=== PATIENT | male | born 1975 | race Caucasian/White ===

== ENCOUNTER 2024-07-14 13:01 | Outpatient (AMB) | payer OTHER, SELFPAY ==
--- NOTE | 2024-07-14 13:01 | A.OFFVIS_ITS ---
Intake Visit Reasons: vasectomy consult Intake Note: New Patient presents for initial visit for vasectomy consult Urology Medications: tadalafil Blood Thinner: none Children# 2 ; Expected Children#0 Night Shift Required: No Accompanied by: Self / Same As Patient Allergies No Known Allergies Allergy (Unverified 07/14/24 13:53) Medication List - Last Reconciled 07/14/24 by MAAME Moya atorvastatin 20 mg PO DAILY tadalafil mg PO vitamin B complex 1 cap PO DAILY HPI Comments Details: Wilian is a very pleasant 48-year-old male patient of . He has a past medical history of subclinical hypothyroidism, hyperlipidemia, and hydrocele. He presents to the office today for - vasectomy evaluation Vasectomy evaluation The patient presents for vasectomy consultation.? He is currently He has fathered -2 children, with a single partner The youngest child is - 8 years old His partner is aware and permissive for a vasectomy Current form of control is hormones Current employment is tray service worker with [employer] The vasectomy may be complicated due to a history of patient with a previous history of left-sided hydrocele never requiring surgical intervention; self resolved. Patient education has been provided via AUA video, via printed information, risks of failure, recovery time, bruising and potential pain syndrome have been stressed Discussion today focused on the presence of vasectomy and the risks, benefits and alternatives that are available. Vasectomy as intended as a permanent form of control. Printed information and literature was provided to the sharri ent. Overall there is a one in 2500 failure rate. This can occur at any time after vasectomy. Risks were discussed highlighting hematoma, spermatocele, epididymal congestion, development of sperm antibodies, and development of chronic pain estimated between 1-5%. The procedure was reviewed in detail. Anatomical diagrams of the male genitalia were used to explain the location of the vas deferens. The vas deferens will be transected, the proximal end will be cauterized, a metal clip would be applied to separate the 2 vas deferens ends. It was explained the procedure will be done in the office and takes approximately 10-15 minutes. Less common problems that arise with vasectomy include hematoma, bleeding, allergic reaction to anesthetic, epididymal infection, epididymal congestion, scrotal discomfort, spermatic leak, spermatic granuloma and the possibility of antisperm antibodies. He understands these risks and wishes to proceed. Consent was signed at the office today. He also understands that it takes 12 weeks for sperm to fully clear the system. He will need to provide a semen sample at 12 weeks and if this is not clear a 2nd sample at 16 weeks. Medical clearance to stop using pr otection will only be provided if he satisfies published criteria for sperm clearance. [facility] Medical History Subclinical hypothyroidism Hyperlipidemia Testicular mass Hyperglycemia Surgical History History of tonsillectomy Review of Systems Const All systems reviewed & are unremarkable except as noted in HPI and below Physical Exam Const General: cooperative, healthy appearing, comfortable, no acute distress, well developed, alert and awake Orientation/consciousness: patient oriented x3 Limitations: no limitations HEENT Head: Yes normal to inspection, Yes normocephalic and Yes atraumatic Ears: hearing grossly normal bilaterally Eyes General: appearance normal, both eyes and all related structures Neck Neck: Yes normal visual inspection and Yes trachea midline Chest Chest palpation & inspection: normal inspection of the chest Resp Effort & Inspection: normal respiratory effort and able to speak in complete sentences Cardio Rate: regular rate GI Inspection: Yes normal to inspection General: Yes no CVA tenderness Male General Exam: Yes normal external exam Penis: normal penis and circumcised Meatus: meatus normal Scrotum: scrotum normal Testes: Testes normal Back/Spine/Pelvis Back: no CVA tenderness Skin General skin exam: no rashes or lesions noted Neuro General: patient oriented x3 Extrem General: Yes normal to inspection Psych Appearance: grossly normal and well kempt Mental Status: mental status grossly normal Speech and movement: Normal speech and movement present and Clear speech present Affect: normal affect Attitude: cooperative Thought process: Normal thought process present Thought content: Normal thought content present Insight: Fair insight present (Psych) Judgement: Fair judgement present (Psych) Assessment & Plan Assessment & Plan (1) Anxiety about health: Code(s): R45.89 - Other symptoms and signs involving emotional state Category: Medical (2) Vasectomy evaluation: Code(s): Z30.09 - Encounter for other general counseling and advice on contraception Category: Medical Plan Vasectomy procedure was discussed at length; risks and benefits. Consent obtain All questions were answered We discussed in office semen analysis verses fellows kit; information provided Prescriptions provided; discussed importance of bringing medications to office day of surgical procedure. Will schedule for in office vasectomy Follow-up per doctor's orders; or sooner with any issues, concerns, and or questions. Medications: New tramadol Bring medication to office day of procedure 50 mg PO Q8H PRN 7 tabs 0RF pain diazepam (Valium) Bring medications office day of procedure 2 mg PO DAILY 2 tabs 0RF anxiety R 45.89 - Other symptoms and signs involving emotional state Patient Instructions: The patient had an opportunity to ask questions regarding the treatment plan. All questions were answered. Physical exam, labs, and imaging were discussed and reviewed in detail. As well as risks, benefits, and discussion of treatment choices. No major barriers to understanding were identified. The patient expressed understanding and agreement with the above treatment plan. The patient was made aware they should contact our office by phone for worsening of their current condition, the appearance of new symptoms, or with any questions or concerns. Compliance is encouraged with any medications and follow up testing that is ordered. It is a privilege to be allowed the opportunity to participate in? your urological care.? Again, if you have any questions or concerns If you have any questions or concerns please do not hesitate to contact me. The office is [phone]. This note is constructed using voice recognition software. While every effort has been made to ensure accuracy food preparer errors may have been included. Yours sincerely, MAAME Moya Coding Level of Care Code New Pt Level 4 (65602) Diagnoses Anxiety about health R45.89 Vasectomy evaluation Z30.09
--- OUTSIDE RECORDS SUMMARY | 2024-07-14 14:17 | XMS_ITS | Clinical Summary ---
Author Organization [facility] [address] [place] [address] [place] [phone] Phone Care Team Providers Care Paint Supervisor Name Role Phone Cecil Harman MD Primary Care Provider [phone] Allergies No known active allergies Medications albuterol HFA (PROAIR HFA ; PROVENTIL HFA ; VENTOLIN HFA) 90 mcg/actuation inhaler Inhale 2 Puffs into the lungs every 4 hours as needed for Cough or Wheezing. 4 Active MULTIVITAMIN ORAL Take by mouth. Activ e atorvastatin (LIPITOR) 20 mg tablet Take 1 Tablet by mouth daily. 4 Active cyanocobalamin (VITAMIN B-12) 1,000 mcg tablet Take 1 Tablet by mouth daily. 4 Active L. acidophilus/Bif id. animalis (DAILY PROBIOTIC ORAL) Take by mouth. Active naproxen (NAPROSYN) 500 mg tablet Take 1 Tablet by mouth 2 times daily (with meals). 4 Active omega-3 acid ethyl esters (LOVAZA) 1 gram capsule Take by mouth. Activ e tadalafiL (CIALIS) 10 mg tablet Take 1 Tablet by mouth as needed for Erectile Dysfunction (Take 30 minutes before sexual activity, do not exceed more than 2 dose with in 24 hours). 4 Active Active Problems Problem Noted Date Diagnosed Date Hyperglycemia 09/07/2019 Testicular mass 09/07/2019 Hyperlipidemia 11/05/2018 Subclinical hypothyroidism 01/25/2017 Encounters Date Type Department Care Team Description 05/19/2024 [place] [facility] [place] [address] [place] [address] Cecil Harman MD Referral from Last 3 Months Immunizations Name Administration Dates Next Due Moderna SARS-CoV-2 COVID-19, mRNA, LNP-S, preservative free 02/08/2021,04/11/2020,03/11/2020 Pneumococcal conjugate 20 [facility] (Prevnar 20, PCV 20) 2mo and older 08/22/2023 Td Tetanus diptheria (Tdvax) 7yo and older 09/09 Tdap Tetanus diptheria acell ular pertussis (Boostrix; Adacel) 7yo and older 02/20/2012 Surgical History Surgery Date Site/Laterality Comments TONSILLECTOMY PROCEDURE: HISTORICAL TONSILLECTOMY Medical History Medical History Date Comments Asthma DX:Asthma Herpes genitalis in men DX:Herpe s genitalis in men Family History Medical History Relation Name Comments Coronary artery disease Maternal Grandfather Other: cancer Maternal Grandfather unsure which kind of CA Coronary artery disease Maternal Grandmother Diabetes Maternal Grandmother Crohn's disease Mother gestational DM Relation Name Status Comments Father Alive Maternal Grandfather Maternal Grandmother Mother Alive Social History Tobacco Use Types Packs/Day Years Used Date Smoking Tobacco: Former Cigarettes 1 36.8 1 03/18/1979 - 11/16/2016 Smokeless Tobacco: Former Tobacco Cessation:Counseling Given: Not Answered Alcohol Use Standard Drinks/Week Comments Yes 0 (1 standard drink = 0.6 oz pur e alcohol) Housing Instability Answer Date Recorde d Are you worried that in the next 2 months you may not have stable housing? Patient declined 03/01/2024 Food Access & Nutrition Answer Date Rec orded Do you have access to a vari ety of food including fruits and vegetables? Patient declined 03/01/2024 Health Literacy Answer Date Recorded How often do you need to hav e someone help you when you read instructions, pamphlets, or other written material from your doctor or pharmacy? Patient declined 03/01/2024 Caregiver: How often do you need to have someone help you when you read instructions, pamphlets, or other written material from your doctor or pharmacy? Not on file 024 Financial Risk Answer Date Recorded How hard is it for you to pa y for the very basics like food, housing, medical care, and air conditioning / heating? Patient declined 03/01/2024 Transportation Answer Date Recorded Has the lack of transportati on kept you from meetings, work, or from getting things needed for daily living? Patient declined 03/01/2024 Has the lack of transportati on kept you from medical appointments or from getting medications? Patient declined 03/01/2024 Social Isolation Answer Date Recorded How often do you feel lonely or isolated from those around you? Patient declined 03/01/2024 Food Risk Answer Date Recorded Within the past 12 months we worried whether our food would run out before we got money to buy more. Patient declined 024 Within the past 12 months th e food we bought just didn't last and we didn't have money to get more. Patient declined 02/09 Dependent Care Answer Date Recorded Do you need help finding or paying for care for your loved ones. For example, early childhood worker or elderly care for an older adult? Patient declined 03/01/2024 Education Answer Date Recorded Do you think completing more education or training, like finishing a GED, going to college, or learning a trade, would be helpful for you? Patient declined 03/01/2024 Employment and Income Answer Date Recor ded During the last four weeks, have you been actively looking for work? Patient declined 03/01/2024 Living Situation Answer Date Recorded What is your living situation? 1 05/02/2023 Sex and Gender Information Value Date Recorded Sex Assigned at Not on file Legal Sex Male 11:11 AM EST Gender Identity Not on file Sexual Orientation Not on file Obstetrics History Last Filed Vital Signs Vital Sign Reading Time Taken Comments Blood Pressure 122/84 03/02/2024 1:21 PM EST Pulse 78 03/02/2024 1:21 PM EST Temperature 36.9 ??C (98.4 ??F) 03/02/2024 1:21 PM ES T Respiratory Rate 16 03/02/2024 1:21 PM EST Oxygen Saturation - - Inhaled Oxygen Concentration - - Weight 93.4 kg (206 lb) 03/02/2024 1:21 PM EST Height 185.4 cm (6' 1 ) 03/02/2024 1:21 PM EST Body Mass Index 27.18 03/02/2024 1:21 PM EST Plan of Treatment Health Maintenance Due Date Last Done Comments Hepatitis B Vaccines (1 of 3 - 19+ 3-dose series) 1996 Colorectal Cancer Screening: Colonoscopy 02/06/2022 DTaP,Tdap,and Td Vaccines (3 - Td or Tdap) 02/19/2022 02/20/2012, 09/09/2008 Influenza Vaccine (Season Ended) 2024 Depression Screening 03/01/2025 03/01/2024 Social Influencers of Health Screening 03/01/2025 03/01/2024 Cholesterol Screening (Lipid Panel) 09/08/2028 09/09/2023, 09/09/2023 HIV Screening Completed 10/23/2021 Hepatitis C Screening Completed 10/23/2021 Pneumococcal Vaccine: Pediatrics (0 to 5 Years) and At-Risk Patients (6 to 64 Years) Completed 08/22/2023 COVID-19 Vaccine Completed 01/23/2024, , 02/21/2021, Additional history exists HIB Vaccines Aged Out No longer eligi ble based on patient's age to complete this topic HPV Vaccines Aged Out No longer eligi ble based on patient's age to complete this topic Hepatitis A Vaccines Aged Out No long er eligible based on patient's age to complete this topic IPV Vaccines Aged Out No longer eligi ble based on patient's age to complete this topic MMR Vaccines Aged Out No longer eligi ble based on patient's age to complete this topic Meningococcal ACWY Vaccine Aged Out N o longer eligible based on patient's age to complete this topic Meningococcal B Vaccine Aged Out No l onger eligible based on patient's age to complete this topic RSV Immunization Patients Under 20 months Aged Out No longer eligible based on patient's age to complete this topic Varicella Vaccines Aged Out No longer eligible based on patient's age to complete this topic Procedures Procedure Name Priority Date/Time Associated Diagnosis Comments LIPID PANEL Routine 09/09/2023 HEPATITIS C SCREENING Routine 10/23/2021 HIV SCREENING Routine 10/23/2021 from Last 3 Months or Most Recently Relevant to Health Maintenance Results * (ABNORMAL) Lipid panel (09/09/2023) LDL/HDL Ratio 8(A) 0 - 4 Triglycerides 242(A) 0 - 150 mg/dL Cholesterol 246(A) 0 - 200 mg/dL HDL 32(A) >=40 mg/dL LDL Cholesterol 166(A) 0 - 100 mg/dL Blood Venous blood specimen / Unknown Historical Provider LAB BLOOD ORDERABLES [facility] Result * HIV Screening (10/23/2021) HIV Screening abstracted Historical Provider HEALTH MAINTENANCE Final Result * Hepatitis C Screening (10/23/2021) Hepatitis C Screening abstracted Historical Provider HEALTH MAINTENANCE Final Result from Last 3 Months or Most Recently Relevant to Health Maintenance Insurance [facility] Care Teams Paint Supervisor Relationship Specialty Start Date End Date Cecil Harman MD [address] [place] [address] PCP - General Internal Medicine 10/16/21
== END 2024-07-14 13:56 | disposition home or self-care (01) ==
LOC: HO.HUSH 13:02
PROVIDERS: PCP Internal Medicine; Visit Provider Nurse Practitioner Family
DX: R45.89 Other symptoms and signs involving emotional state (principal); Z30.09 Encounter for other general counseling and advice on contraception
CPT/HCPCS: 99204

== ENCOUNTER → 2024-07-14 13:01 | Outpatient (BNVA) | payer OTHER, SELFPAY | PROVIDERS: PCP Internal Medicine; Visit Provider Nurse Practitioner Family ==

== ENCOUNTER 2024-09-02 14:55 | Outpatient (AMB) | payer OTHER, SELFPAY ==
--- NOTE | 2024-09-02 15:02 | A.OFFVIS_ITS ---
Intake Visit Reasons: Vasectomy Intake Note: Patient is present for VASECTOMY Urology Medication:VITAMIN B,TADALAFIL Antibiotic Allergy:NONE Blood Thinner:NONE Supervisor Packing Room Required: No Allergies No Known Allergies Allergy (Verified 09/02/24 15:05) HPI Comments Details: Wilian is a very pleasant 48-year-old male patient of . He has a past medical history of subclinical hypothyroidism, hyperlipidemia, and hydrocele. He presents to the office today for - vasectomy procedure Vasectomy procedure The patient presents for vasectomy consultation.? 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 Preoperative and postoperative instructions were provided to the patient. The patient has transportation to home identified at the completion of the procedure. Anti-anxiolytic prescription medication had been taken after consent verification and all questions answered. Tylenol with Codeine pain medication was also provided. The penis was elevated using a rubber band that was attached to the patient's shirt. Both vasa were palpated through the skin using a 3 finger technique and the penoscrotal junction was prepped with Betadine. After Betadine application the left vas was elevated using a 3 finger grasping technique. 1% lidocaine was used to create a subdermal bubble. Further anesthetic was then advanced using the 25-gauge needle along the vasa in a proximal fashion. Approximately 2 minutes were allowed to for local anesthetic uptake. Using the sharp spreading instrument the scrotal skin was spread longitudinally in line with the vasa until the subdermal layer had been divided. The vasa was then elevated from the scrotum using a ring clamp. Care was taken to elevate the superior portion of the vasa by rotating the ring clamp in a caudad direction. The battery powered cautery was used to divide the vasal sheath in a longitudinal direction on the exposed vasa and to strip the vasal sheath from the vasa. A 2nd narrower ring clamp was placed on the exposed vas and used to lift the vas from the vasal sheath. so it grasped the elevated vas. The cautery was used to divide vasal attachments and allow full exposure of a small loop of vasa. The sharp spreading instrument was then used to create a tunnel under the vasa and spread to allow the blood vessels of the vasa to retract from the vasa. A mosquito clamp was placed on the proximal portion of the vas. The battery- powered cautery was used to make a partial division in the proximal vas and then inserted in order to cauterize the proximal end of the vas. This was then cut and allowed to retract into the vasal sheath. The mosquito was then used to twist the vasa 180 degrees creating a fascial interposition. Using a 4-0 chromic suture the fascial interposition was sutured closed. The distal portion of the vas was then cut in order to obtain a segment of vasa. The vasa were allowed to retract back into the scrotum. A small snap was then used to approximate the skin edges and allow hemostasis without placement of a suture. A similar procedure was repeated on the right side. He tolerated the procedure well. Triple antibiotic was applied. A gauze was applied. An ice pack was applied to assist with minimizing swelling. Postoperative instructions were confirmed. He understands the need to continue to use control methods. A semen sample should be brought for inspection under the microscope in 10-12 weeks. CPT 15569 Vasectomy performed by: Walter Santana Informed consent given: Yes Informed consent signed: Yes Time out checklist: patient, procedure, site marked/identified, positioning of patient, supplies available, allergies confirmed and team agrees on procedure Specimens: vas segments not sent to pathology [id number] - Vasectomy Office Meds lidocaine (PF) 10 mg/mL (1 %) injection solution Performing Provider: Walter Santana MD Performing [facility] [place] [facility] Document[facility] (not given) by: Walter Santana MD on 09/02/24 15:41 Dose Route Admin Location Dispensed Lot Number Expiration Date ND Instrument Room Technician 2 mL Infiltration mL Total Dispensed Waste n/a n/a Assessment & Plan Assessment & Plan (1) Anxiety about health: Code(s): R45.89 - Other symptoms and signs involving emotional state Category: Medical Plan Twelve week follow-up Orders: Orders AMB Vasectomy Today R45.89 - Other symptoms and signs involving emotional state Medications: New lidocaine (PF) 2 mL Infiltration ONCE 2 mL 0RF R45.89 - Other symptoms and signs involving emotional state Patient Instructions: This note is constructed using voice recognition software. While every effort has been made to ensure accuracy wrapper sizer errors may have been included. Imaging studies, laboratory and physical exam results were discussed and reviewed in detail. No major barriers to patient understanding were identified. An opportunity to ask questions regarding the treatment plan was provided. All questions were answered. The patient expressed understanding and agreement with the above treatment plan. The patient is aware they should contact our office by phone for worsening of their current condition or the appearance of new urologic symptoms. Compliance is encouraged with any medications and followup testing that is ordered. It is a privilege to participate in the urologic care of your patient. If you have any questions or concerns regarding treatment for the above conditions, or other urologic issues, please do not hesitate to contact me. The office telephone contact is [phone]. Sincerely, Dr Walter Santana MD, [facility] - Urology Compassionate Specialist Care for the Genitourinary System Coding Level of Care Code Procedure Only Diagnoses Anxiety about health R45.89 CPT Codes Office Procedure - CPT: 99333 - Vasectomy ([id number])
--- OUTSIDE RECORDS SUMMARY | 2024-09-02 17:49 | XMS_ITS | Clinical Summary ---
Author Organization [facility] [address] [place] [address] [place] [phone] Phone Care Team Providers Care Assembler Piano Name Role Phone Cecil Harman MD Primary Care Provider [phone] Allergies No known active allergies Medications albuterol [...] mass 09/07/2019 Hyperlipidemia 11/05/2018 Subclinical hypothyroidism 01/25/2017 Immunizations Name Administration Dates Next Due Moderna SARS-CoV-2 COVID-19, mRNA, LNP-S, preservative free 02/08/2021,04/11/2020,03/11/2020 Pneumococcal conjugate 20 [facility] (Prevnar 20, PCV 20) 2mo and older [...] care for your loved ones. For example, child development teacher or elderly care for an older adult? [...] 78 03/02/2024 1:21 PM EST Temperature 36.9 C (98.4 F) 03/02/2024 1:21 PM EST Respiratory Rate 16 03/02/2024 1:21 PM EST [...] Most Recently Relevant to Health Maintenance Insurance [facility] Care Teams Assembler Piano Relationship Specialty Start Date End Date Cecil Harman MD [address] [place] [address] PCP - General Internal Medicine 10/16/21
== END 2024-09-02 15:45 | disposition home or self-care (01) ==
LOC: HO.HUSH 14:56
PROVIDERS: PCP Internal Medicine; Visit Provider Urology
DX: Z30.2 Encounter for sterilization (principal); R45.89 Other symptoms and signs involving emotional state
CPT/HCPCS: 55250

== ENCOUNTER → 2024-09-02 14:55 | Outpatient (BNVA) | payer OTHER, SELFPAY | PROVIDERS: PCP Internal Medicine; Visit Provider Urology | DX: Z30.2 Encounter for sterilization (principal); R45.89 Other symptoms and signs involving emotional state | CPT/HCPCS: 55250 ==

== ENCOUNTER 2024-12-04 15:07 | Outpatient (AMB) | payer OTHER, SELFPAY ==
--- NOTE | 2024-12-04 15:08 | A.OFFVIS_ITS ---
Intake Visit Reasons: 12w semen analysis Intake Note: Patient is present for POST- VASECTOMY Urology Medication:VITAMIN B,TADALAFIL Antibiotic Allergy:NONE Blood Thinner:NONE Quarry Plug And Feather Driller Required: No Accompanied by: Self / Same As Patient Allergies No Known Allergies Allergy (Verified 12/04/24 15:09) HPI Comments Details: Wilian is a very pleasant 48-year-old male patient of . He has a past medical history of subclinical hypothyroidism, hyperlipidemia, and hydrocele. He presents to the office today for - vasectomy procedure Follow-up from vasectomy procedure Minimal issues after procedure No sperm seen on high-powered field evaluation in office today Successful outcome P.r.n. follow-up Vasectomy procedure The patient presents for vasectomy consultation.? He is currently He has fathered -2 children, with a single partner The youngest child is - 8 years old His partner is aware and permissive for a vasectomy Current form of control is hormones Current employment is motel food service supervisor with [employer] Medical History Subclinical hypothyroidism Hyperlipidemia Testicular mass Hyperglycemia Surgical History History of tonsillectomy Review of Systems Const Denies chills and Denies fever(s) Card Reports no additional complaints and Denies syncope Resp Denies cough GI Denies abdominal pain and Denies heartburn Reports as per HPI and Denies change in libido Neuro Denies syncope Psych Denies change in libido Endo Denies change in libido Physical Exam Const General: cooperative, healthy appearing, comfortable and no acute distress Orientation/consciousness: patient oriented x3 HEENT Face and sinus: Yes normal facial exam Mouth: moist mucous membranes Neck Neck: Yes normal visual inspection, Yes full ROM and Yes trachea midline Chest Chest palpation & inspection: normal inspection of the chest Resp Effort & Inspection: normal respiratory effort, able to speak in complete sentences and no respiratory distress GI Inspection: Yes normal to inspection Back/Spine/Pelvis Cervical Spine: normal cervical lordosis Thoracic/Lumbar Spine: thoracic and lumbar spine normal to inspection Skin General skin exam: no rashes or lesions noted Neuro General: patient oriented x3, gait normal, tone normal and moves all extremities Extrem General: Yes normal to inspection and Yes capillary refill normal Assessment & Plan Assessment & Plan (1) Anxiety about health: Code(s): R45.89 - Other symptoms and signs involving emotional state Category: Medical Plan P.r.n. follow-up Patient Instructions: This note is constructed using voice recognition software. While every effort has been made to ensure accuracy assistant grocery store manager errors may have been included. Imaging studies, laboratory and physical exam results were discussed and reviewed in detail. No major barriers to patient understanding were identified. An opportunity to ask questions regarding the treatment plan was provided. All questions were answered. The patient expressed understanding and agreement with the above treatment plan. The patient is aware they should contact our office by phone for worsening of their current condition or the appearance of new urologic symptoms. Compliance is encouraged with any medications and followup testing that is ordered. It is a privilege to participate in the urologic care of your patient. If you have any questions or concerns regarding treatment for the above conditions, or other urologic issues, please do not hesitate to contact me. The office telephone contact is [phone]. Sincerely, Dr Walter Santana MD, [facility] - Urology Compassionate Specialist Care for the Genitourinary System Coding Level of Care Code Est Pt Level 3 (29291) Diagnoses Anxiety about health R45.89
--- OUTSIDE RECORDS SUMMARY | 2024-12-04 15:43 | XMS_ITS | Clinical Summary ---
Author Organization [facility] [address] [place] [address] [place] [phone] Phone Care Team Providers Care Surveillance Inspector Name Role Phone Cecil Harman MD Primary Care Provider [phone] Allergies No known active allergies Medications albuterol HFA (PROAIR HFA ; PROVENTIL HFA ; VENTOLIN HFA) 90 mcg/actuation inhaler Inhale 2 Puffs into the lungs every 4 hours as needed for Cough or Wheezing. 08/08/19 24 Active MULTIVITAMIN ORAL Take by mouth. Activ e cyanocobalamin (VITAMIN B-12) 1,000 mcg tablet Take 1 Tablet by mouth daily. 08/08/19 24 Active L. acidophilus/Bi fid. animalis (DAILY PROBIOTIC ORAL) Take by mouth. Activ e omega-3 acid ethyl esters (LOVAZA) 1 gram capsule Take by mouth. Ac tive tadalafiL (CIALIS) 10 mg tablet TAKE 1 TABLET BY MOUTH 30 MINUTES BEFORE SEXUAL ACTIVITY NEEDED FOR ERECTILE DYSFUNCTION. DO NOT EXCEED MORE THAN 2 DOSE WITH IN 24 HOURS 4 tablet 10/07/19 25 Active atorvastatin (LIPITOR) 20 mg tablet TAKE 1 TABLET BY MOUTH DAILY 30 tablet 10/07/19 25 Active naproxen (NAPROSYN) 250 mg tablet Take 1 tablet (250 mg total) by mouth 2 (two) times a day if needed (pain). 60 tablet 1 10/29/19 25 Active predniSONE (DELTASONE) 20 mg tablet Take 2 tablets (40 mg total) by mouth See administration instructions for 3 days, THEN 1 tablet (20 mg total) See administration instructions for 4 days. 10 tablet 10/29/19 25 025 Active Problems Problem Noted Date Diagnosed Date Hyperglycemia 09/07/2019 Testicular mass 09/07/2019 Hyperlipidemia 11/05/2018 Subclinical hypothyroidism 01/25/2017 Encounters Date Type Department Care Team Description 10/28/2024 12:45 PM EDT Office Visit Adult Medicine [address] [phone] Cecil Harman MD Poison aba dermatitis (Primary Dx); Eczema, unspecified type; Tick bite, unspecified site, initial encounter; Mixed hyperlipidemia; B12 deficiency; Subclinical hypothyroidism; Mild intermittent asthma without complication; Osteoarthritis of left shoulder, unspecified osteoarthritis type from Last 3 Months Immunizations Name Administration [...] your doctor or pharmacy? Not on file Financial Risk Answer Date Recorded How hard [...] got money to buy more. Patient declined Within the past 12 months th e food we bought just didn't last and we didn't have money to get more. Patient declined 02/09 Dependent Care Answer Date Recorded Do you need help finding or paying for care for your loved ones. For example, child therapist or elderly care for an older adult? [...] Sign Reading Time Taken Comments Blood Pressure 118/80 10/28/2024 1:07 PM EDT Pulse 77 10/28/2024 12:40 PM EDT Temperature 35.9 C (96.7 F) 10/28/2024 12:40 PM EDT Respiratory Rate 16 03/02/2024 1:21 PM EST Oxygen Saturation - - Inhaled Oxygen Concentration - - Weight 90.3 kg (199 lb) 10/28/2024 12:40 PM EDT Height 185.4 cm (6' 1 ) 10/28/2024 12:40 PM EDT Body Mass Index 26.25 10/28/2024 12:40 PM EDT Plan of Treatment Upcoming Encounters Date Type Department Care Team (Late st Contact Info) Description 05/03/2025 4:00 PM EST Office Visit Adult Medicine [facility] [address] [place] [address] Cecil Harman MD [address] [place] [address] Health Maintenance Due Date Last Done Comments Hepatitis B Vaccines (1 of 3 - 19+ 3-dose series) 1996 Colorectal Cancer Screening: Colonoscopy 02/06/2022 DTaP,Tdap,and Td Vaccines (3 - Td or Tdap) 02/19/2022 02/20/2012, 09/09/2008 Depression Screening 03/11/2024 03/01/2024 Influenza Vaccine (#1) 2024 Social Influencers of Health Screening 03/01/2025 03/01/2024 Cholesterol Screening (Lipid Panel) 10/29/2029 10/29/2024, 09/09/2023, 09/09/2023 HIV Screening Completed 10/23/2021 Hepatitis C Screening Completed 10/23/2021 Pneumococcal Vaccine: Pediatrics (0 to 5 Years) and At-Risk Patients (6 to 49 Years) Completed 08/22/2023 COVID-19 Vaccine Completed 01/23/2024, [...] Priority Date/Time Associated Diagnosis Comments LIPID PANEL WITH REFLEX TO DIRECT LDL Routine 10/29/2024 8:30 AM EDT Mixed hyperlipidemia VITAMIN B12 Routine 10/29/2024 8:30 AM EDT B12 deficiency THYROID STIMULATING HORMONE WITH REFLEX TO FREE T4 AND FREE T3 Routine 10/29/2024 8:30 AM EDT Subclinical hypothyroidism BORRELIA BURGDORFERI ANTIBODY Routine 10/29/2024 8:30 AM EDT Tick bite, unspecified site, initial encounter HEPATITIS C SCREENING Routine 10/23/2021 HIV SCREENING Routine 10/23/2021 from Last 3 Months or Most Recently Relevant to Health Maintenance Results * Thyroid stimulating hormone with reflex to free t4 and free t3 (10/29/2024 8:30 AM EDT) TSH 1.93 0.40 - 4.00 mcIU/mL LAB CHEMISTRY METHOD 10/29/2024 11:56 AM EDT [facility] Blood Venous blood specimen / Unknown Venipuncture / Unknown 10/29/2024 8:30 AM EDT 10/29/2024 8:31 AM EDT Cecil Harman MD LAB BLOOD ORDERABLES Final Result [facility] [address] [place] [address], [place] [phone] * (ABNORMAL) Lipid panel with reflex to direct LDL (10/29/2024 8:30 AM EDT) Cholesterol 243(H) 0 - 200 mg/dL LAB CHEMISTRY METHOD 10/29/2024 11:32 AM EDT [facility] Triglycerides 163(H) 0 - 150 mg/dL LAB CHEMISTRY METHOD 10/29/2024 11:32 AM EDT [facility] HDL 37(L) >=40 mg/dL LAB CHEMISTRY METHOD 10/29/2024 11:32 AM EDT [facility] LDL Calculated 173(H) 0 - 100 mg/dL LAB CHEMISTRY METHOD 10/29/2024 11:32 AM EDT [facility] Comment:Estimated LDL Calcul ated using equation: Total cholesterol - HDL cholesterol - (Triglycerides/5) VLDL Cholesterol James 32.6 mg/dL LAB CHEMISTRY METHOD 10/29/2024 11:32 AM EDT [facility] Non HDL Chol. (LDL+VLDL) 206(H) <145 mg/dL LAB CHEMISTRY METHOD 10/29/2024 11:32 AM EDT [facility] Chol/HDL Ratio 6.6(H) 0.0 - 4.4 LAB CHEMISTRY METHOD 10/29/2024 11:32 AM EDT [facility] Blood Venous blood specimen / Unknown Venipuncture / Unknown 10/29/2024 8:30 AM EDT 10/29/2024 8:31 AM EDT Cecil Harman MD LAB BLOOD ORDERABLES Final Result [facility] [address] [place] [address], * Borrelia burgdorferi antibody (10/29/2024 8:30 AM EDT) [facility] Lyme Ab Negative Negative LAB CHEMISTRY METHOD 10/29/2024 12:35 PM EDT [facility] Comment: No laboratory evidence of infection with B. burgdorferi (Lyme disease). Negative results may occur in patients recently infected (<=14 days) with B. burgdorferi. If recent infection is suspected, repeat testing on a new sample collected in 7- 14 days is recommended. Blood Venous blood specimen / Unknown Venipuncture / Unknown 10/29/2024 8:30 AM EDT 10/29/2024 8:31 AM EDT Cecil Harman MD LAB BLOOD ORDERABLES Final Result Performing Organization Address City/[facility]/ZIP Co de Phone Number [facility] [address] [place] [address], * Vitamin B12 (10/29/2024 8:30 AM EDT) [facility] Vitamin B-12 793 250 - 900 pcg/mL LAB CHEMISTRY METHOD 10/29/2024 11:32 AM EDT [facility] Blood Venous blood specimen / Unknown Venipuncture / Unknown 10/29/2024 8:30 AM EDT 10/29/2024 8:31 AM EDT Cecil Harman MD LAB BLOOD ORDERABLES Final Result [facility] [address] [place] [address], [place] [phone] * HIV Screening (10/23/2021) [facility] HIV Screening abstracted Historical Provider HEALTH MAINTENANCE Final Result * Hepatitis C Screening (10/23/2021) [facility] Hepatitis C Screening abstracted Historical Renea AREVALO HEALTH MAINTENANCE Final Result from Last 3 Months or Most Recently Relevant to Health Maintenance Insurance [facility] Care Teams Surveillance Inspector Relationship Specialty Start Date End Date Cecil Harman MD [address] [place] [address] PCP - General Internal Medicine 10/16/21
--- OUTSIDE RECORDS SUMMARY | 2024-12-04 15:43 | XMS_ITS ---
Author Name [facility] Organization Unknown Care Team Organization Name Specialty Phone Email Start Date End Da te [facility] 01/16/2022 10/28/2023
== END 2024-12-04 15:28 | disposition home or self-care (01) ==
LOC: HO.HUSH 15:08
PROVIDERS: PCP Internal Medicine; Visit Provider Urology
DX: R45.89 Other symptoms and signs involving emotional state (principal)
CPT/HCPCS: 99213